=== PATIENT | male | born 1965 | race Caucasian/White ===

== ENCOUNTER 2023-10-25 08:15 | Emergency (ER) | payer BC, OTHER ==
[2023-10-25 08:49] LABS: BASOPHILS ABSOLUTE AUTO 0.04 10^3/uL (0.00-0.10); BASOPHILS PERCENT AUTO 0.6 % (0.0-1.0); EOSINOPHILS ABSOLUTE AUTO 0.09 10^3/uL (0.10-0.30); EOSINOPHILS PERCENT AUTO 1.4 % (1.0-3.0); HEMATOCRIT 44.6 % (40.0-52.0); HEMOGLOBIN 14.7 g/dL (13.0-17.0); IMMATURE GRAN ABSOLUTE AUTO 0.01 10^3/uL (0.00-0.50); IMMATURE GRAN PERCENT AUTO 0.2 % (0.0-5.0); LYMPHOCYTES ABSOLUTE AUTO 1.46 10^3/uL (1.00-4.00); LYMPHOCYTES PERCENT AUTO 23.3 % (20.0-40.0); MONOCYTES ABSOLUTE AUTO 0.53 10^3/uL (0.10-0.80); MONOCYTES PERCENT AUTO 8.5 % (2.0-8.0); NEUTROPHILS ABSOLUTE AUTO 4.13 10^3/uL (2.50-7.00); PLATELET COUNT,PLT 194 10^3/uL (150-400); RED BLOOD CELL COUNT 5.07 10^6/uL (4.50-6.00); RED CELL DISTRIBUTION WIDTH 12.7 % (11.5-14.5); WHITE BLOOD CELL COUNT,WBC 6.26 10^3/uL (5.00-10.00)
[2023-10-25 09:15] LABS: ALANINE AMINOTRANSFERASE,ALT 33 U/L (14-63); ALBUMIN 3.08 g/dL (3.40-5.00); ALKALINE PHOSPHATASE 78 U/L (46-116); ANION GAP 11.8 mmol/L (5-15); ASPARTATE AMNIOTRANSFERASE,AST 15 U/L (15-37); BILIRUBIN TOTAL 0.3 mg/dL (0.2-1.0); BLOOD UREA NITROGEN,BUN 16 mg/dL (7-18); CALCIUM 8.6 mg/dL (8.7-10.3); CARBON DIOXIDE,CO2 28.1 mmol/L (21.0-32.0); CHLORIDE,CL 106 mmol/L (98-107); CREATININE 1.02 mg/dL (0.51-1.17); EST CRCL DRUG DOSING (CG) 83.05 mL/min; GLUCOSE RANDOM 114 mg/dL (70-140); POTASSIUM,K 3.9 mmol/L (3.5-5.1); SODIUM,NA 142 mmol/L (136-145)
[2023-10-25 09:20] LABS: C-REACTIVE PROTEIN < 0.50 mg/dL (0.00-0.50); ESTIMATED GFR 85 mL/min (>=60)
[2023-10-25] MEDS: Sodium Chloride 0.9% 50 ML IV SCH (09:40)
[2023-10-25] MEDS: Iopamidol 755 Mg/ML 100 ML Bottle IV ONE (09:40)
== END 2023-10-25 10:48 | disposition home or self-care (01) ==
LOC: KA.ED 08:15
DX: K40.21 Bilateral inguinal hernia, without obstruction or gangrene, recurrent (principal); R01.1 Cardiac murmur, unspecified
CPT/HCPCS: 36415; 74177; 80053; 83605; 85025; 86140; 99284; J3490; Q3014; Q9967